=== PATIENT | female | born 1970 ===

== ENCOUNTER 2017-03-27 20:59 | Emergency (ER) | payer MEDICAID, OTHER ==
[2017-03-27 21:47] VITALS: BP 142/84; PULSE 71; RESP 18; TEMP 98.4; O2SAT 98
[2017-03-27] MEDS ORDERED: Clindamycin 150 mg/mL Inj IVPB STA ×2 (21:57→22:04)
--- NOTE | 2017-03-27 21:59 | ED PDOC ---
HPI: General Adult Time Seen by Provider: 03/27/17 21:57 Chief Complaint (Nursing): Abnormal Skin Integrity Chief Complaint (Provider): wound infection History Per: Patient, Family (Daughter at bedside is translating in english for patient) Additional Complaint(s): 46-year-old female presents to emergency department for evaluation of wound infection. Patient is status post breast reduction one month ago by a surgeon in [place]. For the past 10 days patient has noticed open wounds along surgical incision of left breast with purulent drainage. She has had subjective fever for the past 5 days but has not measured her temperature. Patient states she has been cleaning the wound daily with alcohol, peroxide and Betadine but wound seems to be worsening. She never had follow-up after surgery 1 month ago. Past Medical History Reviewed: Historical Data Vital Signs: Last Vital Signs Temp 98.4 F 03/27/17 21:44 Pulse 71 03/27/17 21:44 Resp 18 03/27/17 21:44 BP 142/84 03/27/17 21:44 Pulse Ox 98 03/27/17 22:42 - Medical History PMH: Depression, HTN, Hypercholesterolemia - Surgical History Surgical History: Other surgeries: breast reduction - Family History Family History: States: No Known Family Hx - Living Arrangements Living Arrangements: With Family - Social History Current smoker - smoking cessation education provided: No Alcohol: None Drugs: Denies - Home Medications Home Medications: Ambulatory Orders Medication Instructions Recorded Aspirin/Acetaminophen/Caffeine 1 each PO BID PRN #14 tablet 08/24/16 [Excedrin Migraine Caplet] Ferrous Sulfate [Feosol] 324 mg PO BID #30 ect 08/24/16 Clindamycin [Cleocin] 0 mg PO QID #28 cap 03/27/17 Ibuprofen [Motrin Tab] 800 mg PO Q8 PRN #20 tab 03/27/17 - Allergies Allergies/Adverse Reactions: Allergies Allergy/AdvReac Type Severity Reaction Status Date / Time No Known Allergies Allergy Verified 03/27/17 21:44 Review of Systems ROS Statement: Except As Marked, All Systems Reviewed And Found Negative Constitutional: Positive for: Fever (for 1 week, tactile, not measured). Negative for: Chills Respiratory: Negative for: Cough Gastrointestinal: Negative for: Nausea, Vomiting Skin: Positive for: Other (post surgical wound infection) Physical Exam - Reviewed Nursing Documentation Reviewed: Yes Vital Signs Reviewed: Yes - Physical Exam Appears: Positive for: Well, Non-toxic, No Acute Distress Skin: Negative for: Rash Eye Exam: Positive for: Normal appearance Cardiovascular/Chest: Positive for: Regular Rate, Rhythm, Other (There are 3 small superficial dehiscences noted along surgical incision under left breast with mild localized erythema and dried purulent discharge noted to wounds, mildly tender to palpation, no palpable fluid collections, surgical incisions right breast is clean, dry and intact ) Respiratory: Positive for: Normal Breath Sounds Back: Negative for: L CVA Tenderness, R CVA Tenderness Neurologic/Psych: Positive for: Alert, Oriented - Laboratory Results Result Diagrams: 03/27/17 22:18 03/27/17 22:18 - ECG O2 Sat by Pulse Oximetry: 98 Pulse Ox Interpretation: Normal Medical Decision Making Medical Decision Making: Impression: wound infection Patient is well-appearing, afebrile upon arrival. Vital signs are stable. Plan: Blood culture Wound culture CBC CMP IV clindamycin Motrin dose for pain Patient given wound care instructions. Rx motrin and clindamycin. Advised wound re-check in 1-2 days with PMD. Disposition - Clinical Impression Clinical Impression: Wound infection after surgery - Patient ED Disposition Is Patient to be Admitted: No Counseled Patient/Family Regarding: Diagnosis, Need For Followup, Rx Given - Disposition Referrals: Suzie Urrutia MD [Medical Doctor] - Disposition: Routine/Home Disposition Time: 22:55 Condition: STABLE Additional Instructions: Keep area clean and dry. Wash with soap and water daily. Do not apply anything to go. Take prescription meds as directed. Follow-up with primary doctor in 1-2 days. Prescriptions: Clindamycin [Cleocin] 0 mg PO QID #28 cap Ibuprofen [Motrin Tab] 800 mg PO Q8 PRN #20 tab PRN Reason: Pain, Moderate (4-7) Instructions: Surgical Site Infections (ED) Forms: [employer] (Romanian) Results - Lab Results Lab Results: 03/27/17 03/27/17 22:18 22:18 WBC 9.5 RBC 4.81 Hgb 12.2 D Hct 38.2 MCV 79.3 L D MCH 25.4 L MCHC 32.0 L RDW 17.4 H Plt Count 291 D MPV 8.3 Neut % (Auto) 63.2 Lymph % (Auto) 25.0 [place] % (Auto) 7.7 Eos % (Auto) 3.6 Baso % (Auto) 0.5 Neut # 6.0 Lymph # 2.4 [place] # 0.7 Eos # 0.3 Baso # 0.0 Sodium 143 Potassium 4.1 Chloride 103 Carbon Dioxide 24 Anion Gap 20 BUN 12 Creatinine 0.8 Est GFR ( Amer) > 60 Est GFR (Non-Af Amer) > 60 Random Glucose 95 Calcium 9.6 Total Bilirubin 0.3 AST 30 ALT 41 Alkaline Phosphatase 136 H Total Protein 8.4 H Albumin 4.5 Globulin 3.8 Albumin/Globulin Ratio 1.2
[2017-03-27] MEDS ORDERED: Clindamycin 600 MG in Sodium Chloride 0.9% 100 ML IVPB STA ×2 (22:01→22:14)
[2017-03-27 22:23] LABS: BASO % 0.5 % (0.0-2.0); EOS # 0.3 K/uL (0.0-0.7); EOS % 3.6 % (0.0-4.0); HEMATOCRIT 38.2 % (34.0-47.0); LYMPH # 2.4 K/uL (1.0-4.3); MEAN CELL VOLUME 79.3 fl (81.0-99.0); MEAN CORPUSCULAR HEMOGLOBIN 25.4 pg (27.0-31.0); MEAN PLATELET VOLUME 8.3 fl (7.2-11.7); MONO # 0.7 K/uL (0.0-0.8); MONO % 7.7 % (0.0-10.0); NEUT % 63.2 % (50.0-75.0); NRBC % 0.2 % (0.0-0.0); RED CELL DISTRIBUTION WIDTH 17.4 % (11.5-14.5); WHITE BLOOD COUNT 9.5 K/uL (4.8-10.8)
[2017-03-27 22:40] LABS: ALB/GLOB RATIO 1.2 (1.0-2.1); ALKALINE PHOSPHATASE 136 U/L (38-126); ALT/SGPT 41 U/L (9-52); AST/SGOT 30 U/L (14-36); BILIRUBIN,TOTAL 0.3 mg/dl (0.2-1.3); BLOOD UREA NITROGEN 12 mg/dl (7-17); CALCIUM 9.6 mg/dL (8.4-10.2); CARBON DIOXIDE 24 mmol/L (22-30); CHLORIDE 103 mmol/L (98-107); GFR AFRICAN-AMERICAN > 60; GLUCOSE,RANDOM 95 mg/dL (65-105); POTASSIUM 4.1 MMOL/L (3.6-5.0); SODIUM 143 mmol/l (132-148); TOTAL PROTEIN 8.4 G/DL (6.3-8.2)
== END 2017-03-27 23:29 | disposition home or self-care (01) ==
LOC: H.ER 20:59
DX: T81.4XXA Infection following a procedure, initial encounter (principal)